=== PATIENT | male | born 1950 | race African-American/Black ===

== ENCOUNTER 2019-02-15 13:11 | Inpatient (IN) | payer MEDICARE ==
[~2019-02-15] VITALS: Ht 177.8 cm; Wt 98.7 kg
[2019-02-15 13:30] VITALS: BP 139/82
[2019-02-15 14:53] LABS: BASOPHILS % (AUTO) 2.3 % (0.0-2.0); EOSINOPHILS % (AUTO) 4.8 % (0.0-3.0); HEMATOCRIT 38.7 % (42.0-52.0); HEMOGLOBIN 12.4 G/DL (14.2-18.0); LYMPHOCYTES % (AUTO) 31.9 % (20.0-45.0); MEAN CORPUSCULAR VOLUME 85 FL (80-99); MONOCYTES % (AUTO) 10.1 % (1.0-10.0); PLATELET COUNT 184 K/UL (150-450); RED BLOOD COUNT 4.55 M/UL (4.70-6.10); RED CELL DISTRIBUTION WIDTH 14.9 % (11.6-14.8); WHITE BLOOD COUNT 6.5 K/UL (4.8-10.8)
[2019-02-15 15:08] LABS: ANION GAP 16 mmol/L (5-15); BLOOD UREA NITROGEN 80 mg/dL (7-18); CALCIUM 8.4 MG/DL (8.5-10.1); CARBON DIOXIDE 24 MMOL/L (21-32); CHLORIDE 99 MMOL/L (98-107); CREATININE 13.4 MG/DL (0.55-1.30); POTASSIUM 5.6 MMOL/L (3.5-5.1); SODIUM 138 MMOL/L (136-145)
[2019-02-15 15:13] LABS: ALANINE AMINOTRANSFERASE 44 U/L (12-78); ALBUMIN 4.3 G/DL (3.4-5.0); ALBUMIN/GLOBULIN RATIO 0.9 (1.0-2.7); ALKALINE PHOSPHATASE 71 U/L (46-116); ASPARTATE AMINO TRANSFERASE 22 U/L (15-37); BILIRUBIN,TOTAL 0.4 MG/DL (0.2-1.0)
[2019-02-15 15:48] VITALS: BP 143/77
[2019-02-15] MEDS ORDERED: PRO-STAT LIQUID30 ML ORAL (15:53)
[2019-02-15] MEDS ORDERED: FAMOTIDINE20 MG ORAL (15:53)
[2019-02-15] MEDS ORDERED: LEVETIRACETAM500 MG ORAL (15:55)
[2019-02-15] MEDS ORDERED: PLAVIX75 MG ORAL (15:55)
[2019-02-15] MEDS ORDERED: ATORVASTATIN CA40 MG ORAL (15:55)
[2019-02-15] MEDS ORDERED: DOCUSATE SODIU250 MG ORAL (15:55)
[2019-02-15] MEDS ORDERED: SENNA8.6 M2 PO (15:55)
[2019-02-15] MEDS ORDERED: NEPHROVITE1 TAB ORAL (15:57)
[2019-02-15] MEDS ORDERED: RENVELA0.8 GM ORAL (15:57)
[2019-02-15] MEDS ORDERED: GABAPENTIN100 MG ORAL (15:57)
[2019-02-15] MEDS ORDERED: BICITRA30 ML ORAL (15:57)
[2019-02-15] MEDS ORDERED: LABETALOL HCL100 MG ORAL (15:58)
[2019-02-15] MEDS ORDERED: ACETAMINOPHEN325 M1 ORAL (15:59)
[2019-02-15] MEDS ORDERED: AMLODIPINE BESY10 MG ORAL (15:59)
[2019-02-15] MEDS ORDERED: ALBUTEROL SULF8.5 GM INH (15:59)
--- NOTE | 2019-02-15 18:22 | Emergency Room Report ---
History of Present Illness General Chief Complaint: General Complaint Present Illness HPI Patient is a 68-year-old male brought in by basic ambulance after increased generalized weakness. Patient had recently missed dialysis. Patient had mild difficulty breathing. He denies any fever. He denies any vomiting or diarrhea. Patient is followed by Dr. Chavez. Allergies: Coded Allergies: ASPIRIN (Verified Allergy, Unknown, 02/15/19) PENICILLINS (Verified Allergy, Unknown, 02/15/19) Patient History Past Medical History: see triage record Reviewed Nursing Documentation: PMH: Agreed; PSxH: Agreed Nursing Documentation-PMH Hx Cardiac Problems: Yes - HF Hx Hypertension: Yes - HYPERLIPIDEMIA, Hx Seizures: Yes Review of Systems All Other Systems: negative except mentioned in HPI Physical Exam Vital Signs Date Time Temp Pulse Resp B/P (MAP) Pulse Ox O2 Delivery O2 Flow Rate FiO2 02/15/19 12:56 98.2 69 18 139/82 (101) 94 Room Air General Appearance: alert, GCS 15, Chronically Ill ENT: uvula midline Neck: supple, limited range of motion Cardiovascular #1: normal inspection, regular rate, rhythm Gastrointestinal: normal inspection Musculoskeletal: normal inspection Neurologic: normal inspection, alert, oriented x3 Medical Decision Making Diagnostic Impression: Primary Impression: Renal failure Additional Impression: Hyperkalemia ER Course Patient presented for missed dialysis. Differential diagnosis include was not limited to hyperkalemia, acidosis, uremia among others. Because of complexity of patient's case laboratory testing and was ordered. Patient was noted to have hyperkalemia as well as some uremiaon laboratory testing. Dr. Jack was contacted for inpatient management due to primary care physician. Patient will require dialysis while in the hospital. Labs Test 02/15/19 14:35 White Blood Count 6.5 K/UL (4.8-10.8) Red Blood Count 4.55 M/UL (4.70-6.10) Hemoglobin 12.4 G/DL (14.2-18.0) Hematocrit 38.7 % (42.0-52.0) Mean Corpuscular Volume 85 FL (80-99) Mean Corpuscular Hemoglobin 27.2 PG (27.0-31.0) Mean Corpuscular Hemoglobin Concent 32.0 G/DL (32.0-36.0) Red Cell Distribution Width 14.9 % (11.6-14.8) Platelet Count 184 K/UL (150-450) Mean Platelet Volume 7.1 FL (6.5-10.1) Neutrophils (%) (Auto) 51.0 % (45.0-75.0) Lymphocytes (%) (Auto) 31.9 % (20.0-45.0) Monocytes (%) (Auto) 10.1 % (1.0-10.0) Eosinophils (%) (Auto) 4.8 % (0.0-3.0) Basophils (%) (Auto) 2.3 % (0.0-2.0) Sodium Level 138 MMOL/L (136-145) Potassium Level 5.6 MMOL/L (3.5-5.1) Chloride Level 99 MMOL/L (98-107) Carbon Dioxide Level 24 MMOL/L (21-32) Anion Gap 16 mmol/L (5-15) Blood Urea Nitrogen 80 mg/dL (7-18) Creatinine 13.4 MG/DL (0.55-1.30) Estimat Glomerular Filtration Rate 4.5 mL/min (>60) Glucose Level 92 MG/DL (74-106) Calcium Level 8.4 MG/DL (8.5-10.1) Total Bilirubin 0.4 MG/DL (0.2-1.0) Aspartate Amino Transf (AST/SGOT) 22 U/L (15-37) Alanine Aminotransferase (ALT/SGPT) 44 U/L (12-78) Alkaline Phosphatase 71 U/L (46-116) Total Protein 8.9 G/DL (6.4-8.2) Albumin 4.3 G/DL (3.4-5.0) Globulin 4.6 g/dL Albumin/Globulin Ratio 0.9 (1.0-2.7) Last Vital Signs Date Time Temp Pulse Resp B/P (MAP) Pulse Ox O2 Delivery O2 Flow Rate FiO2 02/15/19 15:48 64 17 143/77 99 Room Air 02/15/19 13:30 98.2 Status: unchanged Disposition: ADMITTED INPATIENT Condition: Stable Referrals: Wilfredo Jack MD (PCP) Brock Vitale MD Feb 15, 2019 18:22
[2019-02-15 18:35] VITALS: BP 181/85
[2019-02-15 20:00] VITALS: BP 150/81
--- NOTE | 2019-02-15 20:00 | History and Physical Report ---
DATE OF ADMISSION: 02/15/2019 CHIEF COMPLAINT: Shortness of breath. HISTORY OF PRESENT ILLNESS: This is a 68-year-old male who is on dialysis. The patient missed several dialysis rounds. He is referred to the ED for admission for provision of his dialysis due to shortness of breath. PAST MEDICAL HISTORY: 1. End-stage renal failure, on dialysis. 2. Status post CVA. 3. Ischemic heart disease. 4. Type 2 diabetes mellitus. 5. Anemia of chronic kidney disease. 6. Seizure disorder. 7. COPD. HOME MEDICATIONS: Atorvastatin, sodium docusate, Keppra, Nephro-Lorelei, Neurontin, sevelamer, sodium citrate, labetalol, Tylenol p.r.n., DuoNeb inhalation. ALLERGIES: No known allergies. FAMILY HISTORY: Unremarkable. SOCIAL HISTORY: Lives in a halfway. HABITS: He is nonsmoker and nondrinker. There is no history of illicit drug abuse. REVIEW OF SYSTEMS: HEENT: Hearing and eyesight are normal. ENDOCRINE: Significant for type 2 diabetes mellitus. RESPIRATORY: Significant for orthopnea, paroxysmal nocturnal dyspnea, and dyspnea on effort. NEUROLOGICAL: Significant for history of previous stroke with left hemiparesis. PHYSICAL EXAMINATION: GENERAL: This is an elderly male who is in no acute distress. VITAL SIGNS: Blood pressure 139/82, pulse 69 regular, respirations 18, and temperature is 98.2. HEENT: Head is normocephalic and atraumatic. Pupils are equal, round, and reactive to light and accommodation consensually. NECK: Supple. Trachea midline. There was no lymphadenopathy or thyromegaly. LUNGS: Few bilateral crackles. HEART: Regular rate and rhythm without rubs, murmurs, or gallops. CHEST: He has a right-sided PermCath. ABDOMEN: Soft and nontender. Bowel sounds were active. EXTREMITIES: No clubbing, cyanosis, or edema. He has a left upper arm AV fistula with faint bruit and thrill. NEUROLOGIC: He is alert and oriented x4. He has left hemiparesis. LABORATORY AND ANCILLARY DATA: Hemoglobin 12.4, white count 6.5. Chemistry, potassium 5.6, sodium 138, BUN 80, creatinine 13.4. Chest x-ray result is pending. ASSESSMENT: 1. Congestive heart failure. 2. End-stage renal failure, on dialysis. 3. Status post CVA. 4. Ischemic heart disease. 5. Type 2 diabetes mellitus. 6. Anemia of chronic kidney disease. 7. Seizure disorder. 8. COPD. PLAN: 1. Continue halfway medications. 2. Hemodialysis to be provided. Wilfredo Jack M.D. DR: SHERRY JOB#: [id number] CC:
[2019-02-15] MEDS ORDERED: Albuterol 90mcg Inhaler 8gm INH PRN (22:00)
[2019-02-16] VITALS: BP 144/93
[2019-02-16 04:00] VITALS: BP 137/81
[2019-02-16] MEDS: NovoLOG Insulin Flexpen SUBQ SCH ×4 (05:52→21:00)
[2019-02-16] MEDS ORDERED: NovoLOG Insulin Flexpen SUBQ SCH ×2 (06:30)
[2019-02-16 06:48] LABS: BASOPHILS % (AUTO) 1.2 % (0.0-2.0); EOSINOPHILS % (AUTO) 4.8 % (0.0-3.0); HEMATOCRIT 36.1 % (42.0-52.0); HEMOGLOBIN 11.4 G/DL (14.2-18.0); LYMPHOCYTES % (AUTO) 40.2 % (20.0-45.0); MEAN CORPUSCULAR VOLUME 85 FL (80-99); MONOCYTES % (AUTO) 9.7 % (1.0-10.0); NEUTROPHILS % (AUTO) 44.1 % (45.0-75.0); PLATELET COUNT 194 K/UL (150-450); RED BLOOD COUNT 4.24 M/UL (4.70-6.10); RED CELL DISTRIBUTION WIDTH 14.9 % (11.6-14.8); WHITE BLOOD COUNT 6.1 K/UL (4.8-10.8)
[2019-02-16 07:27] LABS: ANION GAP 19 mmol/L (5-15); BLOOD UREA NITROGEN 88 mg/dL (7-18); CALCIUM 8.7 MG/DL (8.5-10.1); CARBON DIOXIDE 22 MMOL/L (21-32); CHLORIDE 103 MMOL/L (98-107); CREATININE 15.1 MG/DL (0.55-1.30); POTASSIUM 5.3 MMOL/L (3.5-5.1); SODIUM 144 MMOL/L (136-145)
[2019-02-16 08:00] VITALS: BP 130/61
[2019-02-16] MEDS: Docusate 250mg cap ORAL SCH ×2 (09:16→17:42)
[2019-02-16] MEDS: Nephrovite tab (Rena-Vite) ORAL SCH (09:16)
[2019-02-16] MEDS: Sodium Citrate 30ml ORAL SCH ×3 (09:16→17:42)
[2019-02-16] MEDS: Sennosides 8.6mg tab ORAL SCH ×2 (09:17→17:42)
[2019-02-16] MEDS: Renvela 800mg Pkt ORAL SCH ×3 (09:21→17:43)
[2019-02-16] MEDS: Heparin 5000 units/ml inj SUBQ SCH ×2 (09:23→21:00)
[2019-02-16 12:00] VITALS: BP 130/76
[2019-02-16 15:45] LABS: BASOPHILS % (AUTO) 2.7 % (0.0-2.0); EOSINOPHILS % (AUTO) 5.7 % (0.0-3.0); HEMATOCRIT 33.5 % (42.0-52.0); HEMOGLOBIN 11.1 G/DL (14.2-18.0); LYMPHOCYTES % (AUTO) 35.5 % (20.0-45.0); MEAN CORPUSCULAR VOLUME 81 FL (80-99); MONOCYTES % (AUTO) 9.6 % (1.0-10.0); NEUTROPHILS % (AUTO) 46.5 % (45.0-75.0); PLATELET COUNT 181 K/UL (150-450); RED BLOOD COUNT 4.13 M/UL (4.70-6.10); WHITE BLOOD COUNT 5.5 K/UL (4.8-10.8)
[2019-02-16] MEDS ORDERED: Heparin Sod 1000 units/ml 10ml IV PRN (15:45)
[2019-02-16 15:51] LABS: ANION GAP 17 mmol/L (5-15); BLOOD UREA NITROGEN 94 mg/dL (7-18); CALCIUM 8.2 MG/DL (8.5-10.1); CARBON DIOXIDE 24 MMOL/L (21-32); CHLORIDE 98 MMOL/L (98-107); CREATININE 15.3 MG/DL (0.55-1.30); POTASSIUM 5.2 MMOL/L (3.5-5.1); SODIUM 139 MMOL/L (136-145)
[2019-02-16 16:00] VITALS: BP 134/80
--- NOTE | 2019-02-16 16:22 | Nephrology Progress Note ---
Assessment/Plan Plan CHF - add HD tomorrow. DC to SNF after HD. Subjective Subjective Still SOB Objective Objective Last 24 Hour Vital Signs Date Time Temp Pulse Resp B/P (MAP) Pulse Ox O2 Delivery O2 Flow Rate FiO2 02/16/19 12:00 97.8 64 18 130/76 (94) 96 02/16/19 11:54 63 02/16/19 09:18 64 130/61 02/16/19 09:17 64 130/61 02/16/19 09:00 Room Air 02/16/19 08:00 98.4 64 16 130/61 (84) 94 02/16/19 07:32 60 02/16/19 07:05 62 20 94 Room Air 21 02/16/19 04:00 62 02/16/19 04:00 97.0 62 20 137/81 (99) 94 02/16/19 00:00 98.0 71 20 144/93 (110) 96 02/16/19 00:00 58 02/15/19 23:46 Room Air 02/15/19 23:41 97.8 02/15/19 20:00 97.8 77 20 150/81 (104) 99 02/15/19 20:00 63 02/15/19 18:35 97.1 80 20 181/85 (117) 100 02/15/19 18:30 98.1 98 16 147/82 98 Room Air Intake and Output 02/15/19 02/16/19 18:59 06:59 Intake Total 0 ml 240 ml Output Total 100 ml Balance 0 ml 140 ml Intake Oral 0 ml 240 ml Output Urine Total 100 ml Laboratory Tests 02/16/19 05:20: White Blood Count 6.1, Red Blood Count 4.24L, Hemoglobin 11.4L, Hematocrit 36.1L , Mean Corpuscular Volume 85, Mean Corpuscular Hemoglobin 26.8L, Mean Corpuscular Hemoglobin Concent 31.5L, Red Cell Distribution Width 14.9H, Platelet Count 194, Mean Platelet Volume 7.8, Neutrophils (%) (Auto) 44.1L, Lymphocytes (%) (Auto) 40.2, Monocytes (%) (Auto) 9.7, Eosinophils (%) (Auto) 4.8H, Basophils (%) (Auto) 1.2, Sodium Level 144, Potassium Level 5.3H, Chloride Level 103, Carbon Dioxide Level 22, Anion Gap 19H, Blood Urea Nitrogen 88H, Creatinine 15.1H, Estimat Glomerular Filtration Rate 4.0, Glucose Level 84 , Hemoglobin A1c 6.2H, Calcium Level 8.7, Magnesium Level 2.6H, Pro-B-Type Natriuretic Peptide 129H 02/16/19 15:32: White Blood Count 5.5, Red Blood Count 4.13L, Hemoglobin 11.1L, Hematocrit 33.5L , Mean Corpuscular Volume 81, Mean Corpuscular Hemoglobin 26.9L, Mean Corpuscular Hemoglobin Concent 33.1, Red Cell Distribution Width 14.0, Platelet Count 181, Mean Platelet Volume 5.5L, Neutrophils (%) (Auto) 46.5, Lymphocytes ( %) (Auto) 35.5, Monocytes (%) (Auto) 9.6, Eosinophils (%) (Auto) 5.7H, Basophils (%) (Auto) 2.7H, Sodium Level 139, Potassium Level 5.2H, Chloride Level 98, Carbon Dioxide Level 24, Anion Gap 17H, Blood Urea Nitrogen 94H, Creatinine 15.3H, Estimat Glomerular Filtration Rate 3.9, Glucose Level 110H, Calcium Level 8.2L Height (Feet): 5 Height (Inches): 10.00 Weight (Pounds): 219 Objective CV RR Lungs B wheezes. Abd SNT. BS + E +2 edema. Wilfredo Jack MD Feb 16, 2019 16:22
[2019-02-16 20:00] VITALS: BP 137/84
[2019-02-16] MEDS ORDERED: Atorvastatin 80mg tab ORAL SCH (21:00)
[2019-02-16] MEDS ORDERED: Dyna-Hex 2% Top Sol 2oz TOPIC SCH (23:00)
[2019-02-17] VITALS: BP 134/78
[2019-02-17 04:00] VITALS: BP 134/68
[2019-02-17] MEDS ORDERED: Heparin 1000 units/ml 1ml Vial INJ PRN ×2 (06:00→15:00)
[2019-02-17] MEDS ORDERED: Heparin Sod 1000 units/ml 10ml IV PRN ×2 (06:00→15:00)
[2019-02-17] MEDS: NovoLOG Insulin Flexpen SUBQ SCH ×4 (06:30→21:00)
[2019-02-17 08:00] VITALS: BP 121/62
[2019-02-17 08:54] LABS: BASOPHILS % (AUTO) 1.1 % (0.0-2.0); EOSINOPHILS % (AUTO) 3.6 % (0.0-3.0); HEMATOCRIT 37.7 % (42.0-52.0); HEMOGLOBIN 11.9 G/DL (14.2-18.0); LYMPHOCYTES % (AUTO) 36.6 % (20.0-45.0); MEAN CORPUSCULAR VOLUME 85 FL (80-99); MONOCYTES % (AUTO) 9.1 % (1.0-10.0); NEUTROPHILS % (AUTO) 49.7 % (45.0-75.0); PLATELET COUNT 189 K/UL (150-450); RED BLOOD COUNT 4.44 M/UL (4.70-6.10); RED CELL DISTRIBUTION WIDTH 15.1 % (11.6-14.8); WHITE BLOOD COUNT 6.5 K/UL (4.8-10.8)
[2019-02-17] MEDS: Renvela 800mg Pkt ORAL SCH ×3 (09:00→18:14)
[2019-02-17] MEDS: Nephrovite tab (Rena-Vite) ORAL SCH (09:00)
[2019-02-17] MEDS: Sodium Citrate 30ml ORAL SCH ×3 (09:00→18:13)
[2019-02-17] MEDS: Docusate 250mg cap ORAL SCH ×2 (09:00→18:13)
[2019-02-17] MEDS: Sennosides 8.6mg tab ORAL SCH ×2 (09:00→18:13)
[2019-02-17] MEDS: Heparin 5000 units/ml inj SUBQ SCH ×2 (09:00→21:38)
[2019-02-17 09:50] LABS: ANION GAP 19 mmol/L (5-15); CARBON DIOXIDE 24 MMOL/L (21-32); CHLORIDE 98 MMOL/L (98-107); CREATININE 12.7 MG/DL (0.55-1.30); POTASSIUM 4.4 MMOL/L (3.5-5.1); SODIUM 141 MMOL/L (136-145)
[2019-02-17 10:01] LABS: BLOOD UREA NITROGEN 68 mg/dL (7-18)
[2019-02-17 12:00] VITALS: BP 119/47
[2019-02-17] MEDS ORDERED: Albuterol 90mcg Inhaler 8gm INH PRN (14:59)
[2019-02-17 16:00] VITALS: BP 146/78
--- NOTE | 2019-02-17 19:32 | Cardiology Report ---
APPROVED REPORT EKG Measurement Heart [id number] CO 198P52 [id number] Normal sinus rhythm Cannot rule out Anterior infarct, age undetermined Abnormal ECG
--- NOTE | 2019-02-17 19:38 | Cardiology Report ---
APPROVED REPORT EKG Measurement Heart [id number] MA 214P44 [id number] Sinus rhythm with 1st degree AV block with premature atrial complexes Cannot rule out Anterior infarct, age undetermined Abnormal ECG
[2019-02-17 20:00] VITALS: BP 127/87
[2019-02-17] MEDS ORDERED: Dyna-Hex 2% Top Sol 2oz TOPIC SCH (20:00)
[2019-02-17] MEDS ORDERED: Atorvastatin 80mg tab ORAL SCH (21:00)
--- NOTE | 2019-02-17 22:01 | Discharge Summary ---
DATE OF ADMISSION: 02/15/2019 DATE OF DISCHARGE: 02/17/2019 PERTINENT HISTORY: The patient is a 68-year-old male with end-stage renal disease, on dialysis. He has several missed dialysis and presents with congestive heart failure. PERTINENT PHYSICAL FINDINGS: GENERAL: The patient is alert. HEENT: Normocephalic. LUNGS: Few basilar crackles. HEART: Regular rhythm. EXTREMITIES: No edema. COURSE IN THE HOSPITAL: The patient was found to have congestive heart failure and had serial dialysis with fluid removal, felt much better. On the day of discharge, his vital signs were stable. Lungs were clear. Heart, regular rhythm. Extremities, no edema. He has improved and he was discharged back to his [facility] facility in stable condition. FINAL DIAGNOSES: 1. Congestive heart failure, acute on chronic due to missing outpatient dialysis. 2. End-stage renal disease. 3. Prior CVA. 4. Ischemic heart disease. 5. Type 2 diabetes. 6. Anemia of chronic kidney disease. 7. Seizure disorder. 8. COPD. DISCHARGE DISPOSITION: Back to the F under the care of Dr. Chavez with medications per the discharge medication list, and also follow up in the outpatient dialysis unit. Fabiano Jhaveri M.D. DR: Margo JOB#: [id number] CC:
[2019-02-18] VITALS: BP 108/72
[2019-02-18 04:00] VITALS: BP 119/71
[2019-02-18] MEDS: NovoLOG Insulin Flexpen SUBQ SCH ×3 (06:30→16:30)
[2019-02-18 08:00] VITALS: BP 119/75
[2019-02-18] MEDS ORDERED: Nephrovite tab (Rena-Vite) ORAL SCH (09:00)
--- NOTE | 2019-02-18 09:01 | Nephrology Progress Note ---
Assessment/Plan Assessment 1. Congestive heart failure, acute on chronic due to missing outpatient dialysis. 2. End-stage renal disease. 3. Prior CVA. 4. Ischemic heart disease. 5. Type 2 diabetes. 6. Anemia of chronic kidney disease. 7. Seizure disorder. 8. COPD. [facility] could not take him 02/17--I saw him 02/17 stable for dc 02/18 Subjective Constitutional: Reports: weakness HEENT: Reports: no symptoms Genitourinary: Reports: no symptoms Neurologic/Psychiatric: Reports: pre-existing deficit Objective Objective Last 24 Hour Vital Signs Date Time Temp Pulse Resp B/P (MAP) Pulse Ox O2 Delivery O2 Flow Rate FiO2 02/18/19 04:40 68 20 98 Room Air 21 02/18/19 04:00 98.5 67 16 119/71 (87) 95 02/18/19 00:00 98.0 66 17 108/72 (84) 94 02/17/19 21:31 72 127/87 02/17/19 21:00 Room Air 02/17/19 20:00 98.3 72 18 127/87 (100) 95 02/17/19 16:00 98.6 83 16 146/78 (100) 98 02/17/19 13:16 81 20 98 Room Air 21 02/17/19 12:00 74 02/17/19 12:00 97.9 95 20 119/47 (71) 96 02/17/19 09:00 59 121/62 02/17/19 09:00 59 121/62 02/17/19 09:00 Room Air Intake and Output 02/17/19 02/18/19 19:00 07:00 Intake Total 540 ml 480 ml Balance 540 ml 480 ml Intake Oral 540 ml 480 ml # Voids 1 1 Height (Feet): 5 Height (Inches): 10.00 Weight (Pounds): 217 General Appearance: no apparent distress, alert EENT: normal ENT inspection Neck: normal alignment Cardiovascular: normal rate, regular rhythm Respiratory/Chest: lungs clear Abdomen: non tender Genitourinary/Rectal: other - no edema Neurologic: radar operator II-XII grossly normal Fabiano Jhaveri MD Feb 18, 2019 09:01
[2019-02-18] MEDS: Docusate 250mg cap ORAL SCH (10:19)
[2019-02-18] MEDS: Sodium Citrate 30ml ORAL SCH ×2 (10:19→14:14)
[2019-02-18] MEDS: Renvela 800mg Pkt ORAL SCH ×2 (10:20→14:13)
[2019-02-18] MEDS: Sennosides 8.6mg tab ORAL SCH (10:22)
[2019-02-18] MEDS: Heparin 5000 units/ml inj SUBQ SCH (10:24)
[2019-02-18 12:00] VITALS: BP 127/78
[2019-02-18] MEDS ORDERED: 1/2 NS 1000ml IV ONE (13:54)
[2019-02-18 16:00] VITALS: BP 124/83
--- NOTE | 2019-02-28 11:08 | Coder Physician Query ---
Clarification is required for compliance, coding accuracy, and to reflect severity of illness for this patient Dear Date: 02/28/2019 Riveting Machine Operator Automatic/CDS Name: ODELL GARCIA "Heart Failure / CHF" documented in FINAL DIAGNOSES: 1. Congestive heart failure, acute on chronic Please Clarify: Type : [] Systolic [X] Diastolic [] Systolic & Diastolic (Combined) [] Other: Present on Admission: [X] Yes [] No [] Clinically Undetermined JOSÉ MATOS M.D. Date Please also document in your Progress Notes and/or Discharge Summary and indicate if the condition was present on admission. ALEJANDRA
== END 2019-02-18 17:00 | DRG 291 ==
LOC: EDBD 13:11 → EMR 14:11 → 2E 15:12 → EDBEDREQ 16:54 → 2E 02-16 21:30 → 3E 02-17 14:45
PROC: 5A1D70Z Performance of Urinary Filtration, Intermittent, Less than 6 Hours Per Day (ICD-10-PCS; principal; 2019-02-16)
DX: I50.33 Acute on chronic diastolic (congestive) heart failure (principal); N18.6 End stage renal disease; I69.354 Hemiplegia and hemiparesis following cerebral infarction affecting left non-dominant side; E87.70 Fluid overload, unspecified; Z99.2 Dependence on renal dialysis; E87.5 Hyperkalemia; Z88.6 Allergy status to analgesic agent; Z88.0 Allergy status to penicillin; E78.5 Hyperlipidemia, unspecified; E11.9 Type 2 diabetes mellitus without complications; I25.9 Chronic ischemic heart disease, unspecified; D63.1 Anemia in chronic kidney disease; G40.909 Epilepsy, unspecified, not intractable, without status epilepticus; J44.9 Chronic obstructive pulmonary disease, unspecified; Z91.19 Patient's noncompliance with other medical treatment and regimen
CPT/HCPCS: 36415; 80048; 80053; 80299; 82962; 83036; 83735; 83880; 85025; 87081; 93005; 94664; 99285; J1815

== ENCOUNTER 2019-02-23 20:27 | Inpatient (IN) | payer MEDICARE, MEDICAID ==
[~2019-02-23] VITALS: Ht 177.8 cm; Wt 93.0 kg
[~2019-02-23 20:27] MED LIST: ACETAMINOPHEN325 M1 ORAL; ALBUTEROL SULF8.5 GM INH; AMLODIPINE BESY10 MG ORAL; ATORVASTATIN CA40 MG ORAL; BICITRA30 ML ORAL; DOCUSATE SODIU250 MG ORAL; FAMOTIDINE20 MG ORAL; GABAPENTIN100 MG ORAL; LABETALOL HCL100 MG ORAL; LEVETIRACETAM500 MG ORAL; NEPHROVITE1 TAB ORAL; PLAVIX75 MG ORAL; PRO-STAT LIQUID30 ML ORAL; RENVELA0.8 GM ORAL; SENNA8.6 M2 PO
--- NOTE | 2019-02-23 20:27 | NUR ---
ED Nurse Note: Patient presents from SNF, needs Dialysis here, overdue.
[2019-02-23 20:30] VITALS: BP 122/77
--- NOTE | 2019-02-23 20:46 | Emergency Room Report ---
History of Present Illness General Chief Complaint: General Complaint Source: Patient, Medical Record Present Illness HPI Patient presents with complaints of shortness of breath after missing his dialysis today He reports that the tow motor driver did not show up and he was not able to get dialyzed Denies any chest pain however he does feel short of breath denies any vomiting patient did get dialyzed on Tuesday Denies any recent travel denies any pleurisy denies any fevers Allergies: Coded Allergies: ASPIRIN (Verified Allergy, Unknown, 02/15/19) PENICILLINS (Verified Allergy, Unknown, 02/15/19) Patient History Past Medical History: see triage record Pertinent Family History: none Reviewed Nursing Documentation: PMH: Agreed; PSxH: Agreed Nursing Documentation-PMH Past Medical History: No History, Except For Hx Cardiac Problems: Yes Hx Hypertension: Yes - HYPERLIPIDEMIA, Hx COPD: Yes Hx Diabetes: Yes Hx Cancer: No Hx Gastrointestinal Problems: Yes Hx Dialysis: Yes Hx Neurological Problems: Yes Hx Cerebrovascular Accident: Yes Hx Seizures: Yes Review of Systems All Other Systems: negative except mentioned in HPI Physical Exam Vital Signs Date Time Temp Pulse Resp B/P (MAP) Pulse Ox O2 Delivery O2 Flow Rate FiO2 02/23/19 20:19 99.0 68 16 122/77 (92) 92 Room Air Sp02 EP Interpretation: reviewed, abnormal - 92% interpreted as low on 2 L nasal cannula patient saturation 95% which is normal General Appearance: mild distress - mildly tachypneic Head: normocephalic, atraumatic Eyes: bilateral eye PERRL, bilateral eye EOMI ENT: normal pharynx, no angioedema Neck: supple Respiratory: no retraction, no accessory muscle use, crackles - Bilaterally Cardiovascular #1: regular rate, rhythm Gastrointestinal: non tender, soft Musculoskeletal: normal inspection Neurologic: alert, oriented x3, responsive Skin: no rash, palpation normal Lymphatic: no adenopathy Medical Decision Making Diagnostic Impression: Primary Impression: Renal failure ER Course Patient appears short of breath Patient is a fairly complex patient with multiple differential to consideration including but not limited to cardiac cardiopulmonary and vascular emergencies Placed on oxygenation Patient's blood work reveals a normal potassium At this time admitted for further inpatient care Labs Test 02/23/19 20:45 White Blood Count 5.0 K/UL (4.8-10.8) Red Blood Count 4.02 M/UL (4.70-6.10) Hemoglobin 11.0 G/DL (14.2-18.0) Hematocrit 34.7 % (42.0-52.0) Mean Corpuscular Volume 86 FL (80-99) Mean Corpuscular Hemoglobin 27.3 PG (27.0-31.0) Mean Corpuscular Hemoglobin Concent 31.6 G/DL (32.0-36.0) Red Cell Distribution Width 14.8 % (11.6-14.8) Platelet Count 166 K/UL (150-450) Mean Platelet Volume 5.5 FL (6.5-10.1) Neutrophils (%) (Auto) 48.1 % (45.0-75.0) Lymphocytes (%) (Auto) 32.8 % (20.0-45.0) Monocytes (%) (Auto) 12.4 % (1.0-10.0) Eosinophils (%) (Auto) 5.5 % (0.0-3.0) Basophils (%) (Auto) 1.1 % (0.0-2.0) Sodium Level 139 MMOL/L (136-145) Potassium Level 4.1 MMOL/L (3.5-5.1) Chloride Level 98 MMOL/L (98-107) Carbon Dioxide Level 25 MMOL/L (21-32) Anion Gap 16 mmol/L (5-15) Blood Urea Nitrogen 85 mg/dL (7-18) Creatinine 15.0 MG/DL (0.55-1.30) Estimat Glomerular Filtration Rate 4.0 mL/min (>60) Glucose Level 129 MG/DL (74-106) Calcium Level 7.9 MG/DL (8.5-10.1) Total Bilirubin 0.3 MG/DL (0.2-1.0) Aspartate Amino Transf (AST/SGOT) 12 U/L (15-37) Alanine Aminotransferase (ALT/SGPT) 29 U/L (12-78) Alkaline Phosphatase 64 U/L (46-116) Total Creatine Kinase 597 U/L (26-308) Creatine Kinase MB 2.5 NG/ML (0.0-3.6) Creatine Kinase MB Relative Index 0.4 Troponin I 0.000 ng/mL (0.000-0.056) Pro-B-Type Natriuretic Peptide 134 pg/mL (0-125) Total Protein 8.2 G/DL (6.4-8.2) Albumin 4.1 G/DL (3.4-5.0) Globulin 4.1 g/dL Albumin/Globulin Ratio 1.0 (1.0-2.7) EKG Diagnostic Results Rate: normal Rhythm: NSR ST Segments: other - Nonspecific ST T wave changes Rhythm Strip Diag. Results EP Interpretation: yes Rate: 88 Rhythm: NSR, no PVC's, no ectopy Chest X-Ray Diagnostic Results Chest X-Ray Diagnostic Results : Chest X-Ray Ordered: Yes # of Views/Limited/Complete: 1 View Indication: Chest Pain EP Interpretation: Yes Interpretation: no consolidation, no effusion, no pneumothorax, other - Mild congestion Impression: Other - Mild congestion Electronically Signed by: Hieu Leyva DO Last Vital Signs Date Time Temp Pulse Resp B/P (MAP) Pulse Ox O2 Delivery O2 Flow Rate FiO2 02/23/19 20:30 99.0 68 16 122/77 92 Room Air Status: improved Disposition: ADMITTED INPATIENT Condition: Serious Hieu Leyva DO Feb 23, 2019 20:46
[2019-02-23 20:56] LABS: BASOPHILS % (AUTO) 1.1 % (0.0-2.0); EOSINOPHILS % (AUTO) 5.5 % (0.0-3.0); HEMATOCRIT 34.7 % (42.0-52.0); LYMPHOCYTES % (AUTO) 32.8 % (20.0-45.0); MEAN CORPUSCULAR VOLUME 86 FL (80-99); MONOCYTES % (AUTO) 12.4 % (1.0-10.0); NEUTROPHILS % (AUTO) 48.1 % (45.0-75.0); PLATELET COUNT 166 K/UL (150-450); RED BLOOD COUNT 4.02 M/UL (4.70-6.10); RED CELL DISTRIBUTION WIDTH 14.8 % (11.6-14.8)
[2019-02-23 21:20] LABS: ANION GAP 16 mmol/L (5-15); BLOOD UREA NITROGEN 85 mg/dL (7-18); CALCIUM 7.9 MG/DL (8.5-10.1); CARBON DIOXIDE 25 MMOL/L (21-32); CHLORIDE 98 MMOL/L (98-107); POTASSIUM 4.1 MMOL/L (3.5-5.1); SODIUM 139 MMOL/L (136-145)
[2019-02-23 21:35] LABS: ALANINE AMINOTRANSFERASE 29 U/L (12-78); ALBUMIN 4.1 G/DL (3.4-5.0); ALKALINE PHOSPHATASE 64 U/L (46-116); ASPARTATE AMINO TRANSFERASE 12 U/L (15-37); BILIRUBIN,TOTAL 0.3 MG/DL (0.2-1.0); CKMB 2.5 NG/ML (0.0-3.6); CREATINE KINASE 597 U/L (26-308)
--- NOTE | 2019-02-23 21:53 | Diagnostic Imaging Report ---
EXAM: XR Chest, 1 View CLINICAL HISTORY: SOB TECHNIQUE: Frontal view of the chest. COMPARISON: No relevant prior studies available. FINDINGS/IMPRESSION: Portable chest. Patient rotated. Cardiac and mediastinal silhouette prominent, accentuated by technique. Right CVC with tip near atrial caval junction. Right greater than left lung base opacities may represent atelectasis. Correlate for superimposed pneumonia. No overt edema appreciated.
--- NOTE | 2019-02-23 22:47 | NUR ---
ED Nurse Note: verified with Dr. Caal that admission was not cancelled, relayed message to Velasquez who still insisted on calling the nursing paint roller covers supervisor.
--- NOTE | 2019-02-23 22:47 | NUR ---
ED Nurse Note: Called to give report to Velasquez RN, she stated she needed to talk to the nursing precipitator supervisor because she thought the admission was cancelled.
--- NOTE | 2019-02-23 22:50 | NUR ---
ED Nurse Note: received a call back for Velasquez RN who stated Josie Rn would call me back.
--- NOTE | 2019-02-23 22:52 | NUR ---
ED Nurse Note: GAVE REPORT TO ATTILA KHAN.
--- NOTE | 2019-02-23 23:10 | NUR ---
NURSE NOTES: Received a report over the phone from BILL Isaac.Patient stable,A&Ox3-4,tolerated r/air well,SR on air sampling and monitoring,IV asymptomatic,intact on R AC 20 G and shunt for HD on R chest,waiting for pt
--- NOTE | 2019-02-23 23:14 | NUR ---
ED Nurse Note: PATIENT TRANSPORTED TO FLOOR BY RN AND GUILLERMINA.
--- NOTE | 2019-02-23 23:20 | NUR ---
NURSE NOTES: Received patient on a floor room 237-2,SR on plant puller,A&O x4,L side weakness d/t post CVA,no c/o pain,no respiratory distress noted,tolerated r/air,BS active in all quadrants,skin intact,no pictures needed,shunt for HD on R chest,L arm fistula not working,belongings list signed for pt's belongings and steele $31.00,bed secured,call light within a reach,will continue to monitor
[2019-02-23] MEDS ORDERED: NORCO 5-325 TA1 EACH ORAL (23:49)
[2019-02-23] MEDS ORDERED: RENVELA0.8 GM ORAL (23:49)
[2019-02-24] VITALS: BP 128/104
--- NOTE | 2019-02-24 01:30 | NUR ---
NURSE NOTES: Received an admission orders from ,charge nurse aware
[2019-02-24] MEDS ORDERED: HYDROcodone/Acetamin 5/325 tab ORAL PRN (01:45)
[2019-02-24] MEDS ORDERED: Albuterol 90mcg Inhaler 8gm INH PRN (01:45)
--- NOTE | 2019-02-24 01:49 | NUR ---
NURSE NOTES: Called to [facility] dialysis center and spoke with Olamide regarding hemodialysis schedule today.
[2019-02-24 04:00] VITALS: BP 131/96
--- NOTE | 2019-02-24 07:49 | NUR ---
HAND-OFF: Report given to BILL Lo.Patient stable.
--- NOTE | 2019-02-24 07:50 | NUR ---
NURSE NOTES: Received patient in bed. Awake, alert, able to verbalize needs. Call light within reach. On room air, no respiratory distress. Right chest Permacath noted. Left arm shunt noted. Will continue plan of care.
[2019-02-24 08:00] VITALS: BP 122/74
[2019-02-24] MEDS ORDERED: Heparin Sod 1000 units/ml 10ml IV PRN (08:15)
[2019-02-24] MEDS: Vitamin B Complex Tab ORAL SCH (09:33)
[2019-02-24] MEDS: Docusate 250mg cap ORAL SCH ×2 (10:07→17:06)
[2019-02-24] MEDS: Sennosides 8.6mg tab ORAL SCH ×2 (10:09→17:06)
[2019-02-24 12:00] VITALS: BP 133/72
--- NOTE | 2019-02-24 13:00 | NUR ---
NURSE NOTES: [facility] HD nurse at bedside.
--- NOTE | 2019-02-24 13:31 | NUR ---
CASE MANAGEMENT: INITIAL REVIEW 68 YO M LORRAINE FROM [facility] CC: MISSED HD PMHx: HTN. HLD. COPD. DM. CVA. SZ. SI:RENAL FAILURE. T 99 HR 68 RR 16 B/P 122/77 SATS 92% ON RA BUN 85 CR 15 GLU 129 CA 7.9 AST 12 TOTAL CK 597 IS: CXR (-) PATIENT ADMITTED TO SDU 02/23/2019 @ 9326 DCP: PATIENT TO BE DISCHARGED TO SNF ONCE MEDICALLY CLEARED. PLAN OF CARE: HD INPT Addendum: 02/24/19 at 1337 by Lilly Asencio CM CASE MANAGEMENT: REVIEW SI:RENAL FAILURE. T 97.5 HR 65 RR 18 B/P 133/72 SATS 95% ON RA NO LABS TODAY IS: LIPITOR PO QHS GABAPENTIN PO QHS NORVASC PO QD PLAVIX PO QD PEPCID PO QD LABETALOL PO Q12H SDU DCP: PATIENT TO BE DISCHARGED TO SNF ONCE MEDICALLY CLEARED. PLAN OF CARE: HD INPT Addendum: 02/26/19 at 7603 by Lilly Asencio CM INTERQUAL MET
[2019-02-24 16:00] VITALS: BP 124/76
--- NOTE | 2019-02-24 16:29 | NUR ---
TRANSFER TO FLOOR: Patient transferred to Telemetry room 214-2 , per Dr. Jack. Report given to Latasha Arredondo RN. Belonging list reviewed and given to Latasha Arredondo RN. Remains on room air. Call light within reach.
--- NOTE | 2019-02-24 16:30 | NUR ---
NURSE NOTES: Received report from BILL Hill. Pt is alert and oriented X3. He is very talkative. No distress noted. Bed is in lowest position, side rails up X2, and call light is within reach.
--- NOTE | 2019-02-24 17:07 | NUR ---
NURSE NOTES:Pt is denying medication because he already had a bowel movement and does not want to keep having them
--- NOTE | 2019-02-24 17:15 | History and Physical Report ---
DATE OF ADMISSION: 02/23/2019 CHIEF COMPLAINT: Shortness of breath. HISTORY OF PRESENT ILLNESS: This is a 68-year-old male, who is on dialysis every Tuesday, Tuesday, Tuesday. The patient missed his dialysis due to transportation issues. He became short of breath after missing his dialysis yesterday. He was sent for admission to get his dialysis. He has multiple past medical problems among which is congestive heart failure. PAST MEDICAL HISTORY: 1. End-stage renal failure, on dialysis every Tuesday, Tuesday, Tuesday. 2. Hypertensive cardiovascular disease. 3. Status post CVA with left hemiparesis. 4. Anemia of chronic kidney disease. 5. Ischemic heart disease. 6. Type 2 diabetes mellitus. 7. Seizure disorder. 8. COPD. MEDICATIONS: Plavix, atorvastatin, sodium docusate, famotidine, Pillsbury p.r.n., DuoNeb inhalation, amlodipine, Neurontin, labetalol, Keppra, senna, and Renvela. ALLERGIES: Aspirin and penicillin. FAMILY HISTORY: Unremarkable. SOCIAL HISTORY: He lives in a jail. HABITS: He is nonsmoker and nondrinker. There is no history of illicit drug abuse. REVIEW OF SYSTEMS: HEENT: Hearing normal. Eyesight is diminished. ENDOCRINE: Significant for multiorgan type 2 diabetes mellitus. RESPIRATORY: Significant for orthopnea, paroxysmal nocturnal dyspnea, and dyspnea on effort. NEUROLOGICAL: Significant for history of previous stroke and seizures. PHYSICAL EXAMINATION: GENERAL: This is an elderly pleasant male, who is in no acute distress. VITAL SIGNS: Blood pressure 122/74, pulse 61 and regular, respirations 16, and temperature 97.5 axillary. HEENT: Head is normocephalic and atraumatic. Pupils are equal, round, and reactive to light and accommodation consensually. NECK: Supple. Trachea midline. There was no lymphadenopathy or thyromegaly. LUNGS: Clear to auscultation and percussion. HEART: Regular rate and rhythm without rubs, murmurs, or gallops. ABDOMEN: Soft and nontender. Bowel sounds were active. EXTREMITIES: No clubbing, cyanosis, or edema. NEUROLOGIC: He is alert and oriented x4. He is somewhat dysarthric. He has left hemiplegia. LABORATORY AND ANCILLARY DATA: CBC, hemoglobin 11, otherwise within normal limits. Chemistry, electrolytes within normal limits, BUN 85, creatinine 15, glucose 129. Chest x-ray, no overt edema ASSESSMENT: 1. End-stage renal failure, on dialysis every Tuesday, Tuesday, Tuesday. 2. Hypertensive cardiovascular disease. 3. Status post CVA with left hemiparesis. 4. Anemia of chronic kidney disease. 5. Ischemic heart disease. 6. Type 2 diabetes mellitus. 7. Seizure disorder. 8. COPD. PLAN: 1. Provide hemodialysis. 2. The patient needs AV fistula. He continues to dialyze on a PermCath. Wilfredo Jack M.D. DR: LENNOX JOB#: [id number] CC: ALEJANDRA
--- NOTE | 2019-02-24 19:19 | NUR ---
NURSE NOTES: Report received from BILL Pagan. Patient seen in bed in semi blair position. Alert, verbally responsive, able to make needs known. Denies any pain. Patient is on room air with no SOB or respiratory distress noted. IV site noted to right AC 20g and is intact. Permacath noted to right chest, dressing and site intact. Bed is in lowest position. Call light is within easy reach while in bed. will continue to monitor.
--- NOTE | 2019-02-24 19:29 | NUR ---
HAND-OFF: Report given to BILL Mendiola. Plan of care endorsed
[2019-02-24 20:00] VITALS: BP 142/73
[2019-02-24] MEDS: Dyna-Hex 2% Top Sol 2oz TOPIC SCH (20:17)
[2019-02-24] MEDS: Atorvastatin 20mg tab ORAL SCH (20:17)
[2019-02-25] VITALS: BP 128/75
[2019-02-25 03:58] VITALS: BP 124/80
--- NOTE | 2019-02-25 07:25 | NUR ---
HAND-OFF: Report given to Julian Kent RN .
[2019-02-25 07:39] LABS: BASOPHILS % (AUTO) 1.6 % (0.0-2.0); EOSINOPHILS % (AUTO) 5.4 % (0.0-3.0); HEMATOCRIT 35.4 % (42.0-52.0); HEMOGLOBIN 11.1 G/DL (14.2-18.0); LYMPHOCYTES % (AUTO) 39.8 % (20.0-45.0); MEAN CORPUSCULAR VOLUME 87 FL (80-99); MONOCYTES % (AUTO) 12.9 % (1.0-10.0); NEUTROPHILS % (AUTO) 40.3 % (45.0-75.0); PLATELET COUNT 164 K/UL (150-450); RED BLOOD COUNT 4.07 M/UL (4.70-6.10); WHITE BLOOD COUNT 5.6 K/UL (4.8-10.8)
--- NOTE | 2019-02-25 07:39 | NUR ---
NURSE NOTES: Received patient from Nurse Mendiola Rn. Patient awake and alert,sitting up in bed eating his breakfast. Bed in lowest position, side rails X 2 up. call linn within reached. will continue to monitor.
[2019-02-25 08:00] VITALS: BP 127/71
[2019-02-25 08:04] LABS: ANION GAP 19 mmol/L (5-15); BLOOD UREA NITROGEN 69 mg/dL (7-18); CALCIUM 8.4 MG/DL (8.5-10.1); CARBON DIOXIDE 21 MMOL/L (21-32); CHLORIDE 100 MMOL/L (98-107); CREATININE 13.6 MG/DL (0.55-1.30); POTASSIUM 4.9 MMOL/L (3.5-5.1); SODIUM 140 MMOL/L (136-145)
[2019-02-25] MEDS: Sennosides 8.6mg tab ORAL SCH ×2 (08:43→17:09)
[2019-02-25] MEDS: Vitamin B Complex Tab ORAL SCH (08:43)
[2019-02-25] MEDS: Docusate 250mg cap ORAL SCH ×2 (08:43→17:14)
[2019-02-25 08:46] LABS: PHOSPHORUS 6.8 MG/DL (2.5-4.9)
[2019-02-25 12:00] VITALS: BP 112/73
--- NOTE | 2019-02-25 13:23 | Nephrology Progress Note ---
Assessment/Plan Plan Had HD yesterday. DC to SNF. No beds today. Possible DC tomorrow. Subjective Subjective No new c/o Objective Objective Last 24 Hour Vital Signs Date Time Temp Pulse Resp B/P (MAP) Pulse Ox O2 Delivery O2 Flow Rate FiO2 02/25/19 09:00 67 02/25/19 09:00 Room Air 02/25/19 08:43 63 127/71 02/25/19 08:43 63 127/71 02/25/19 08:00 97.3 63 20 127/71 (89) 97 02/25/19 03:58 98.4 63 20 124/80 (95) 98 02/25/19 03:33 64 02/25/19 00:00 98.7 71 20 128/75 (92) 96 02/24/19 23:35 69 02/24/19 21:00 Room Air 02/24/19 20:18 61 142/73 02/24/19 20:00 98.4 61 20 142/73 (96) 98 02/24/19 19:10 65 02/24/19 16:00 98.1 65 18 124/76 (92) 96 02/24/19 15:24 63 Intake and Output 02/24/19 02/25/19 19:00 07:00 Intake Total 240 ml 100 ml Output Total 3000 ml 200 ml Balance -2760 ml -100 ml Intake Oral 240 ml 100 ml Output Urine Total 200 ml Hemodialysis UF 3000 ml Laboratory Tests 02/25/19 06:20: White Blood Count 5.6, Red Blood Count 4.07L, Hemoglobin 11.1L, Hematocrit 35.4L , Mean Corpuscular Volume 87, Mean Corpuscular Hemoglobin 27.2, Mean Corpuscular Hemoglobin Concent 31.3L, Red Cell Distribution Width 15.0H, Platelet Count 164, Mean Platelet Volume 6.2L, Neutrophils (%) (Auto) 40.3L, Lymphocytes (%) (Auto) 39.8, Monocytes (%) (Auto) 12.9H, Eosinophils (%) (Auto) 5.4H, Basophils (%) (Auto) 1.6, Sodium Level 140, Potassium Level 4.9, Chloride Level 100, Carbon Dioxide Level 21, Anion Gap 19H, Blood Urea Nitrogen 69H, Creatinine 13.6H, Estimat Glomerular Filtration Rate 4.5, Glucose Level 82, Calcium Level 8.4L, Phosphorus Level 6.8H, Magnesium Level 2.1, Hepatitis B Surface Antigen [Pending] Height (Feet): 5 Height (Inches): 10.00 Weight (Pounds): 207 Objective CV RR Lungs CTA Abd SNT. BS + E No CCE Wilfredo Jack MD Feb 25, 2019 13:23
[2019-02-25 16:00] VITALS: BP 139/93
--- NOTE | 2019-02-25 19:25 | NUR ---
HAND-OFF: Report given to Ankita Varghese.Plan of care endorsed.
--- NOTE | 2019-02-25 19:30 | NUR ---
NURSE NOTES: patient received. patient in no acute distress at this time. patient complains of no pain at this time. patient awake alert and oriented x3. forgetful at times. patient IVs intact patent and asymptomatic. bed in lowest position and locked. seizure precautions taken. bed side rail padded. urinal at bedside. skin intact. call light within reach. will continue to monitor.
[2019-02-25 20:00] VITALS: BP 120/71
[2019-02-25] MEDS: Atorvastatin 20mg tab ORAL SCH (20:17)
[2019-02-25] MEDS: Dyna-Hex 2% Top Sol 2oz TOPIC SCH (20:17)
[2019-02-26] VITALS: BP 150/64
[2019-02-26 04:00] VITALS: BP 114/74
--- NOTE | 2019-02-26 07:17 | NUR ---
NURSE NOTES: Received report from hCery/RN, Patient is asleep, resting comfortably. No acute distress/SOB noted. Checked IV; patent, no bleeding or infiltration noted. Belonging in reach, Bed in lowest position and locked, Call light within reach. Will continue plan of care.
[2019-02-26 08:00] VITALS: BP 120/81
[2019-02-26] MEDS: Docusate 250mg cap ORAL SCH (08:58)
[2019-02-26 08:59] VITALS: BP 120/81
[2019-02-26] MEDS: Sennosides 8.6mg tab ORAL SCH (08:59)
[2019-02-26] MEDS: Vitamin B Complex Tab ORAL SCH (08:59)
--- NOTE | 2019-02-26 09:32 | NUR ---
DISCHARGE DISPOSITION: PLEASE READ PATIENT TO BE DISCHARGED TO [address] T: [phone]>>> CALL FOR REPORT [facility] ETA 1130 SKILLED FAMILY NOTIFIED OF DC TO SNF. FAMILY AGREEABLE TO DCP
--- NOTE | 2019-02-26 10:45 | NUR ---
NURSE NOTES: Report given to [facility]/ Julia.
--- NOTE | 2019-02-26 11:48 | Nephrology Progress Note ---
Assessment/Plan Plan Had HD yesterday. DC to SNF. No beds today. DC to SNF. Subjective Subjective No new c/o Objective Objective Last 24 Hour Vital Signs Date Time Temp Pulse Resp B/P (MAP) Pulse Ox O2 Delivery O2 Flow Rate FiO2 02/26/19 09:00 Room Air 02/26/19 08:59 70 120/81 02/26/19 08:58 70 120/81 02/26/19 08:00 62 02/26/19 08:00 98.2 70 19 120/81 (94) 95 02/26/19 04:00 97.9 61 18 114/74 (87) 95 02/26/19 04:00 67 02/26/19 00:00 97.9 66 19 150/64 (92) 98 02/26/19 00:00 59 02/25/19 21:00 Room Air 02/25/19 20:17 66 139/93 02/25/19 20:00 98.1 65 18 120/71 (87) 95 02/25/19 16:00 66 02/25/19 16:00 98.1 75 20 139/93 (108) 99 02/25/19 12:00 97.7 65 18 112/73 (86) 98 Intake and Output 02/25/19 02/26/19 19:00 07:00 Intake Total 360 ml Output Total 200 ml Balance 160 ml Intake Oral 360 ml Output Urine Total 200 ml Height (Feet): 5 Height (Inches): 10.00 Weight (Pounds): 205 Objective CV RR Lungs CTA Abd SNT. BS + E No CCE Wilfredo Jack MD Feb 26, 2019 11:48
--- NOTE | 2019-02-26 12:10 | NUR ---
NURSE NOTE discharged to [facility], Patient is in stable condition, Vital signs taken within normal range, no acute distress/SOB noted. Heart monitor and IV removed, no sign of bleeding or infiltration noted. Belonging check done and signed by Patient. Patient left via gurney with ambulance personnel.
[2019-02-26] MEDS ORDERED: Tubing IV Secondary IV ONE (12:29)
--- NOTE | 2019-02-27 18:01 | Discharge Summary ---
Discharge Summary Discharge Summary _ DATE OF ADMISSION: 02/23/2019 DATE OF DISCHARGE: 02/26/2019 DISCHARGED BY: Dr. Jack REASON FOR ADMISSION: 68 years old male with past medical history of end-stage renal disease, on hemodialysis, status post CVA with left hemiparesis, hypertensive cardiovascular disease, ischemic heart disease, type 2 diabetes mellitus, seizure disorder, COPD, anemia of chronic kidney disease, missed his dialysis due to the transportation issue. He subsequently became short of breath and was sent for admission to get his dialysis. Upon evaluation pulse oximetry was 92% on room air. Laboratory work-up was unremarkable , except renal parameters with BUN 85 and creatinine 15 , consistent with known history of end-stage renal disease. Troponin was negative, pro-BNP 124. Chest x-ray revealed right central venous catheter. Right greater than left lung base opacities, possibly representing atelectasis. Patient subsequently admitted to telemetry floor. HOSPITAL COURSE: Patient admitted to telemetry floor. Hemodialysis provided the same day with close monitoring of volumes, renal parameters and electrolytes. Patient needs arteriovenous fistula. His dialysis continued to be via Permacath. Patient was unable to be discharged for 2 consecutive days due to lack of bed at the facility. SNF medication were resumed. Seizure precaution maintained. Keppra continued. No evidence of seizure activity while in the hospital. Antiplatelet therapy with Plavix continued. DVT prophylaxis provided. Blood pressure was managed with calcium channel su and beta-su and remained stable. Supportive care provided. Bowel regimen instituted. Patient was discharged to [facility] for continuation of care. FINAL DIAGNOSES: Shortness of breath due to missed hemodialysis End-stage renal disease, on hemodialysis Hypertensive cardiovascular disease Status post CVA with left hemiparesis Type 2 diabetes mellitus Seizure disorder COPD Ischemic heart disease Status post CVA with left hemiparesis DISCHARGE MEDICATIONS: See Medication Reconciliation list. DISCHARGE INSTRUCTIONS: Patient was discharged to the care home facility. Follow up with medical doctor at the facility. I have been assigned to dictate discharge summary for this account. I was not involved in the patient's management. Lorie Bautista NP Feb 27, 2019 18:01
--- NOTE | 2019-02-28 16:45 | Cardiology Report ---
APPROVED REPORT EKG Measurement Heart [id number] OR [id number] Normal sinus rhythm Normal ECG
== END 2019-02-26 12:30 | DRG 682 ==
LOC: EDBD 20:27 → EMR 21:32 → 2W 21:45 → EDBEDREQ 22:43 → 2E 02-24 16:10
PROC: 5A1D70Z Performance of Urinary Filtration, Intermittent, Less than 6 Hours Per Day (ICD-10-PCS; principal; 2019-02-24)
DX: I13.11 Hypertensive heart and chronic kidney disease without heart failure, with stage 5 chronic kidney disease, or end stage renal disease (principal); N18.6 End stage renal disease; I69.354 Hemiplegia and hemiparesis following cerebral infarction affecting left non-dominant side; Z99.2 Dependence on renal dialysis; J44.9 Chronic obstructive pulmonary disease, unspecified; G40.909 Epilepsy, unspecified, not intractable, without status epilepticus; I25.9 Chronic ischemic heart disease, unspecified; Z79.02 Long term (current) use of antithrombotics/antiplatelets; Z88.6 Allergy status to analgesic agent; Z88.0 Allergy status to penicillin; D63.1 Anemia in chronic kidney disease; E11.22 Type 2 diabetes mellitus with diabetic chronic kidney disease; Z91.15 Patient's noncompliance with renal dialysis
CPT/HCPCS: 36415; 71045; 80048; 80053; 80299; 82550; 82553; 83735; 83880; 84100; 84484; 85025; 86706; 87081; 93005; 99285

== ENCOUNTER 2019-04-09 15:23 | Emergency (ER) | payer MEDICARE, OTHER ==
[~2019-04-09] VITALS: Ht 172.7 cm; Wt 98.9 kg
[~2019-04-09 15:23] MED LIST changes: +NORCO 5-325 TA1 EACH ORAL
[2019-04-09] MEDS ORDERED: Lidocaine 1% 10mg/ml/Epi 0.005mg/ml 30ml vial INJ ONE (15:45)
--- NOTE | 2019-04-09 15:50 | Emergency Room Report ---
History of Present Illness General Chief Complaint: Skin Rash/Abscess Source: Medical Record Present Illness HPI Disclaimer: Please note that this report is being documented using [employer] technology. This can lead to erroneous entry secondary to incorrect interpretation by the dictating instrument. HPI: 68-year-old male with history of ESRD on hemodialysis, last on 04/08, CVA with left-sided hemiparesis, hypertension, CAD, diabetes, seizure disorder, COPD and anemia of chronic disease presents for evaluation of painful lump on his back. Noticed this mass approximately 3 to 4 days ago. He notes a hard firm swelling of the mid back just to the right of midline. Denies over lying skin breakdown, surrounding erythema, discharge. He denies fever, chills, vomiting, diarrhea, chest pain, shortness of breath or any other symptoms. PMH: ESRD, CVA, CAD, diabetes, seizure disorder, COPD, anemia Allergies: Aspirin, penicillin Social Hx: Denies alcohol or drug abuse Allergies: Coded Allergies: ASPIRIN (Verified Allergy, Unknown, 02/15/19) PENICILLINS (Verified Allergy, Unknown, 02/15/19) Nursing Documentation-PMH Past Medical History: No History, Except For Hx Cardiac Problems: Yes - Ischemia Heart Disease Hx Hypertension: Yes - HYPERLIPIDEMIA, Hx COPD: Yes Hx Diabetes: Yes Hx Cancer: No Hx Gastrointestinal Problems: Yes Hx Dialysis: Yes - Hx Neurological Problems: Yes Hx Cerebrovascular Accident: Yes Hx Seizures: Yes Hx Epilepsy: Yes Hx Weakness: Yes Review of Systems All Other Systems: negative except mentioned in HPI Physical Exam Vital Signs Date Time Temp Pulse Resp B/P (MAP) Pulse Ox O2 Delivery O2 Flow Rate FiO2 04/09/19 15:27 98.2 74 16 114/61 (78) 99 Room Air General: Awake and alert, no acute distress HEENT: NC/AT. EOMI. mild left-sided facial asymmetry Chest Wall: No tenderness, no deformity. Dialysis catheter in right upper chest Resp: Normal work of breathing. Skin: Intact. No abrasions, laceration or rash over the exposed skin. In the mid thoracic spine just to the right of midline there is approximately 4 cm indurated area that is tender to palpation without surrounding erythema, no overlying breakdown, no bleeding, no purulent discharge. MSK: Normal tone and bulk. Moving all extremities. No obvious deformity. Neuro: Awake and alert. Mentating appropriately. Left-sided facial droop. Procedures Incision and Drainage Incision and Drainage : Blade Size: 11 I & D Procedure: betadine prep, sterile drapes applied, sterile dressing applied, gauze wick placed Wound Location: back Wound's Depth, Shape: superficial Wound Length (cm): 2 Wound Explored: clean Irrigated w/ Saline (ccs): 100 Anesthesia: Lidocaine w/ Epi Volume Anesthetic (ccs): 5 Complications: None Progress Significant purulent material was expelled and then thoroughly irrigated. Iodoform packing was placed. Patient tolerated the procedure well. Minimal blood loss, less than 10 cc. No complications. Ultrasound Progress Bedside evaluation of skin mass on the back. There is a fluid-filled cavity consistent with abscess measuring approximately 2 x 2 cm. Medical Decision Making Diagnostic Impression: Primary Impression: Abscess ER Course 68-year-old male presents for evaluation of abscess in the upper back causing discomfort. Will incise and drain the abscess which is confirmed by bedside ultrasound. No evidence of systemic infection. Patient had dialysis yesterday and has no other complaints at this time. Last Vital Signs Date Time Temp Pulse Resp B/P (MAP) Pulse Ox O2 Delivery O2 Flow Rate FiO2 04/09/19 15:27 98.2 74 16 114/61 (78) 99 Room Air Reevaluation Impression Abscess was drained at bedside with significant expulsion of purulent material. Well irrigated and packed with iodoform dressing. And patient will follow-up with PMD as an outpatient discussed with PMD. Will start on Bactrim. Patient can be returned to his nursing facility. He notes significant improvement in his pain. Disposition: ASSISTED LIVING Condition: Improved Scripts Trimethoprim/Sulfamethoxazole 160/800* (BACTRIM DS TABLET*) 1 Each Tablet 1 TAB ORAL Q12H, #14 TAB 0 Refills Prov: Ton Pierre MD 04/09/19 Ton Pierre MD Apr 09, 2019 15:50
--- NOTE | 2019-04-09 16:07 | NUR ---
ED Nurse Note: pt with I/D of abscess to right scapula/back area. pt tolerating well. wound cx obtained and sent.
[2019-04-09 16:08] VITALS: BP 114/61
--- NOTE | 2019-04-09 16:29 | NUR ---
ED Nurse Note; pt ready for dc back to [facility] via [facility] crew. kiln charger calling for transport. DSD applied to abscess with packing placed by md. pt tolerates well
[2019-04-09] MEDS ORDERED: BACTRIM DS TAB1 EAC1 ORAL (16:52)
--- NOTE | 2019-04-09 17:19 | NUR ---
ED Nurse Note: WAS ON HOLD FOR 10 MINUTES. CALLED AGAIN. WAS ON HOLD ON FOR 5 MINUTES AND REPORT GIVEN TO BILL BELTRAN
--- NOTE | 2019-04-09 17:42 | NUR ---
ER DISCHARGE NOTE: Patient is cleared to be discharged per ERMD, pt is aox4, on room air, with stable vital signs. pt id band removed without complications. pt report given to [facility] crew.. pt took all belongings. pt awake and alert upon dc back to [facility]
== END 2019-04-09 17:46 | disposition home or self-care (01) ==
LOC: EDBD 15:23 → EMR 17:30
DX: L02.212 Cutaneous abscess of back [any part, except buttock and flank] (principal); E78.5 Hyperlipidemia, unspecified; J44.9 Chronic obstructive pulmonary disease, unspecified; E11.9 Type 2 diabetes mellitus without complications; Z86.73 Personal history of transient ischemic attack (TIA), and cerebral infarction without residual deficits; G40.909 Epilepsy, unspecified, not intractable, without status epilepticus; Z88.0 Allergy status to penicillin; Z88.6 Allergy status to analgesic agent; I25.10 Atherosclerotic heart disease of native coronary artery without angina pectoris; E11.22 Type 2 diabetes mellitus with diabetic chronic kidney disease; I12.0 Hypertensive chronic kidney disease with stage 5 chronic kidney disease or end stage renal disease; N18.6 End stage renal disease; Z99.2 Dependence on renal dialysis; D63.1 Anemia in chronic kidney disease
CPT/HCPCS: 99283